=== PATIENT | female | born 1985 | race Caucasian/White ===

== ENCOUNTER 2020-06-28 17:35 | Emergency (ER) | payer OTHER ==
[~2020-06-28] VITALS: Ht 157.5 cm; Wt 95.3 kg
[2020-06-28 17:56] LABS: ABSOLUTE BASOPHILS 0.1 thou/uL (0.0-0.2); ABSOLUTE EOSINOPHILS 0.6 thou/uL (0.0-0.7); ABSOLUTE LYMPHOCYTES 2.6 thou/uL (0.8-5.3); ABSOLUTE MONOCYTES 0.4 thou/uL (0.0-1.2); ABSOLUTE NEUTROPHILS 5.6 thou/uL (1.6-8.1); BASOPHILS 0.6 %; EOSINOPHILS 6.4 %; HEMOGLOBIN 15.6 gm/dL (12.0-15.0); MCH 28.9 pg (26.0-34.0); MONOCYTES 4.1 %; MPV 7.9 fl. (7.2-11.1); NUCLEATED RBCS 0 /100WBC; PLATELET COUNT* 262 thou/uL (150-400); POLYS 60.9 %; RBC 5.41 mil/uL (4.20-5.00); RDW-CV 13.2 % (10.5-14.5); WBC 9.3 thou/uL (4.0-11.0)
[2020-06-28 18:10] LABS: CALCIUM 8.2 mg/dL (8.5-10.1); CREATININE 0.9 mg/dL (0.6-1.3); POTASSIUM 3.7 mmol/L (3.5-5.1)
[2020-06-28 18:14] LABS: ALBUMIN 3.4 g/dL (3.4-5.0); TOTAL BILIRUBIN 0.3 mg/dL (<0.1-1.0)
[2020-06-28] MEDS ORDERED: ZOFRAN ODT4 MG PO (19:22)
[2020-06-28] MEDS ORDERED: HYDROCODON-ACE1 EAC7 PO (19:22)
[2020-06-28 20:28] VITALS: BP 121/70
--- NOTE | 2020-06-29 13:32 | EKG ---
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 06/29/20 1332 1743 1743 Bismark Zavaleta MD, FAC /EPI
== END 2020-06-28 20:29 | disposition home or self-care (01) ==
LOC: M.ERS 17:35
PROVIDERS: Nurse Practitioner Family
DX: R55 Syncope and collapse (principal); R51.9 Headache, unspecified; R10.11 Right upper quadrant pain; I10 Essential (primary) hypertension; E11.9 Type 2 diabetes mellitus without complications; Z88.8 Allergy status to other drugs, medicaments and biological substances